=== PATIENT | female | born 1970 ===

== ENCOUNTER → 2018-09-01 22:12 | Outpatient (REF) | payer OTHER, SELFPAY ==
[2018-09-01 23:33] LABS: Alanine Aminotransferase 25 IU/L (21-72); Albumin 4.2 g/dL (3.5-5.0); Albumin Globulin Ratio 1.4 (1.0-2.8); Alkaline Phosphatase 85 U/L (38-126); Aspartate Aminotransferase 28 IU/L (17-59); BUN Creatinine Ratio 22.9 (6-22); Bilirubin Total 0.3 mg/dL (0.2-1.3); Blood Urea Nitrogen 16 mg/dL (9-20); Carbon Dioxide 31 mmol/L (22-32); Chloride 100 mmol/L (98-107); Estimated Glomerular Filt Rate > 60.0 mL/min (>60); Globulin 2.9 g/dL (1.7-4.1); Glucose 89 mg/dL (70-100); HEMOLYSIS < 15 (0-50); Potassium 3.9 mmol/L (3.4-5.1); Sodium 143 mmol/L (137-145); Total Protein 7.1 g/dL (6.3-8.2)
[2018-09-03 15:02] LABS: Progesterone 1.9 ng/mL
[2018-09-03 17:40] LABS: Sex Hormone Binding Globulin 33 nmol/L (17-124)
[2018-09-04 13:54] LABS: Dehydroepiandrosterone Sulfate 46 mcg/dL (19-231)
[2018-09-04 15:52] LABS: Estradiol 21 pg/mL
[2018-09-06 19:51] LABS: Sex Hormone Binding Globulin 40 nmol/L (17-124); Testosterone, Bioavailable 0.2 ng/dL (0.5-8.5); Testosterone, Total < 1 ng/dL (2-45); Testosterone,Free 0.1 pg/mL (0.2-5.0)
== END ==
LOC: LAB 22:12
PROVIDERS: Naturopath; Visit Provider Family Medicine
DX: N92.6 Irregular menstruation, unspecified (principal); N95.1 Menopausal and female climacteric states; R68.82 Decreased libido
CPT/HCPCS: 80053; 82040; 82627; 82670; 84144; 84270; 84403; 84443